=== PATIENT | female | born 1980 | race Two or more races ===

== ENCOUNTER → 2018-07-07 | Outpatient (CLI) | payer OTHER | END | disposition home or self-care (01) | LOC: NUCLEAR 07:00 | DX: R10.11 Right upper quadrant pain (principal) | CPT/HCPCS: 78227; A9537 ==

== ENCOUNTER 2018-09-08 07:49 | Outpatient (CLI) | payer OTHER | END 2018-09-08 07:51 | disposition home or self-care (01) | LOC: NUCLEAR 07:49 | DX: K31.84 Gastroparesis (principal) | CPT/HCPCS: 78264; A9541 ==

== ENCOUNTER 2018-10-13 07:00 | Day surgery (SDC) | payer OTHER ==
[~2018-10-13] VITALS: Ht 149.9 cm; Wt 47.6 kg
[2018-10-13] MEDS ORDERED: PERCOCET 5-3251 EACH PO (14:37)
[2018-10-13] MEDS ORDERED: PROTONIX40 MG PO (14:37)
[2018-10-13] MEDS ORDERED: KETO10TA2 PO (14:38)
[2018-10-13] MEDS ORDERED: ZOFRAN4 MG PO (14:38)
== END 2018-10-13 13:00 | disposition home or self-care (01) ==
LOC: CIR.AMB 07:00 → SURG 07:35 → O/R 07:35 → SURG 09:15 → EDSTATUS 11:00 → CIR.AMB 13:00 → O/R 16:00
DX: K80.10 Calculus of gallbladder with chronic cholecystitis without obstruction (principal)

== ENCOUNTER → 2021-12-12 12:51 | Outpatient (CLI) | payer OTHER ==
[~2021-12-12 12:51] MED LIST: KETO10TA2 PO; PERCOCET 5-3251 EACH PO; PROTONIX40 MG PO; ZOFRAN4 MG PO
== END | disposition home or self-care (01) ==
LOC: LAB 12:51
PROVIDERS: ATTEND Urology
DX: N30.00 Acute cystitis without hematuria (principal)

== ENCOUNTER 2022-02-21 07:22 | Outpatient (CLI) | payer OTHER | END 2022-02-21 07:32 | disposition home or self-care (01) | LOC: RAD 07:22 | PROVIDERS: ATTEND Urology | DX: Z01.811 Encounter for preprocedural respiratory examination (principal) ==

== ENCOUNTER 2022-03-14 05:14 | Day surgery (SDC) | payer OTHER | END 2022-03-14 13:20 | disposition home or self-care (01) | LOC: CIR.AMB 05:14 | PROVIDERS: ATTEND Urology | DX: N30.10 Interstitial cystitis (chronic) without hematuria (principal) ==